=== PATIENT | female | born 1960 ===

== ENCOUNTER 2017-04-24 17:22 | Emergency (ER) | payer MEDICAID ==
[2017-04-24 17:28] VITALS: BP 138/77; RESP 18; TEMP 98.5; O2SAT 100
[2017-04-24] MEDS ORDERED: DiphenhydrAMINE 50 mg/ml Inj IVP STA (19:21)
--- NOTE | 2017-04-24 20:11 | ED PDOC ---
Syncope/Near Syncope/Dizzyness Time Seen by Provider: 04/24/17 18:57 Chief Complaint (Nursing): Dizziness/Lightheaded Chief Complaint (Provider): Dizziness History Per: Patient History/Exam Limitations: no limitations Onset/Duration Of Symptoms: Days (3 days) Current Symptoms Are (Timing): Still Present Current Symptoms: headache, chest pain, nausea, and intermittent, non-bilious/ bloody vomiting Associated Symptoms Preceding Syncopal Episode: Vertigo Worse With Change In Head Position Possible Causative Factor(s): Vertigo, Lightheaded W/Change In Head Position Fall Associated With With Symptoms: No Severity: Moderate Additional Complaint(s): Kerry Morris is a 56 year old female, with a past medical history of hypertension and previously known migraines, who presents to the emergency department for the evaluation of vertiginous dizziness, that the patient began experiencing 3 days ago. Patient states that her dizziness is exacerbated with sitting upright and ambulation. Associated headache, chest pain, nausea, and intermittent episodes of non-bilious, non-bloody vomiting are currently present. Denies focal weakness, abdominal pain, or a loss of appetite. PMD: none specified Past Medical History Reviewed: Historical Data, Nursing Documentation, Vital Signs Vital Signs: Last Vital Signs Temp 98.5 F 04/24/17 17:26 Pulse 70 04/24/17 17:26 Resp 18 04/24/17 17:26 BP 138/77 04/24/17 17:26 Pulse Ox 100 04/24/17 17:26 - Medical History PMH: HTN, Hypercholesterolemia, Migraine - Surgical History Surgical History: Appendectomy Other surgeries: Tubal Ligation - Family History Family History: States: Hypertension - Social History Current smoker - smoking cessation education provided: No Ex-Smoker (has not smoked in the last 12 months): No Alcohol: None Drugs: Denies - Home Medications Home Medications: Ambulatory Orders Medication Instructions Recorded Meclizine [Antivert] 50 mg PO BID PRN #30 tab 04/24/17 Ondansetron ODT [Zofran ODT] 1 odt PO Q6 PRN #20 odt 04/24/17 - Allergies Allergies/Adverse Reactions: Allergies Allergy/AdvReac Type Severity Reaction Status Date / Time No Known Allergies Allergy Verified 04/24/17 17:25 Review of Systems ROS Statement: Except As Marked, All Systems Reviewed And Found Negative Cardiovascular: Positive for: Chest Pain Gastrointestinal: Positive for: Nausea, Vomiting (intermittent episodes, non- bilious). Negative for: Abdominal Pain, Hematemesis, Other (loss of appetite) Neurological: Positive for: Headache, Dizziness (vertiginous). Negative for: Weakness (focal) Physical Exam - Reviewed Nursing Documentation Reviewed: Yes Vital Signs Reviewed: Yes - Physical Exam Appears: Positive for: Well, Non-toxic, No Acute Distress Head Exam: Positive for: ATRAUMATIC, NORMOCEPHALIC Skin: Positive for: Normal Color, Warm, DRY Eye Exam: Positive for: EOMI, Normal appearance, PERRL ENT: Positive for: Normal ENT Inspection. Negative for: Pharyngeal Erythema, Tonsillar Exudate Neck: Positive for: Normal, Painless ROM, Supple Cardiovascular/Chest: Positive for: Regular Rate, Rhythm. Negative for: Murmur Respiratory: Positive for: Normal Breath Sounds. Negative for: Wheezing, Respiratory Distress Gastrointestinal/Abdominal: Positive for: Normal Exam, Soft. Negative for: Tenderness Back: Positive for: Normal Inspection. Negative for: Decreased ROM Extremity: Positive for: Normal ROM. Negative for: Deformity Lymphatic: Negative for: Adenopathy Neurologic/Psych: Positive for: Alert, Oriented. Negative for: Motor/Sensory Deficits - Laboratory Results Result Diagrams: 04/24/17 20:14 04/24/17 20:14 - ECG ECG Rhythm: Positive for: Normal QRS, Normal ST Segment, Sinus Rhythm Rate: 62 O2 Sat by Pulse Oximetry: 100 (RA) Pulse Ox Interpretation: Normal Medical Decision Making Medical Decision Makin:56 Initial Impression: Dizziness Differential Diagnoses include, but are not limited to, vertigo, atypical migraine, dehydration, electrolyte abnormality, and anemia. Initial Plan: * CT Head w/o Contrast * Electrocardiogram * Complete Blood Count * Comprehensive Metabolic Panel * Prothrombin Time * Partial Thromboplastin Time * Troponin I * Urine Dip * Magnesium * Phosphorous * Zofran 8 mg IV * Benadryl 25 mg IVP * Phenergan 25 mg IV * Glucose, Blood, POC * Reevaluation 19:27 EKG reviewed, Normal QRS, Normal ST Segment, Normal Sinus Rhythm at a rate of 62. Accession No. : [id number] Patient Name / ID : NADIA PAYNE / [id number] Exam Date : 04/24/2017 20:21:02 ( Approved ) Study Comment : Sex / Age : F / 56Y Creator : Aure Woods MD Dictator : Assembler Fluorescent Lights : Manufacturing Production Manager : Aure Woods MD Approver2 : Report Date : 04/24/2017 20:52:00 My Comment : [facility] Division of Radiology [address] [place] [address] Tel. no. Patient Name: KERRY MORRIS Pt. Address: [address] [place] [address] Rec #: [id number] [place] [address]: Tal MALLOY, Karissa Herron Pt CELL Order Location: [facility] : 1960 Female Age: 56 Order #: [id number] Reason for exam: dizzy vertiginous CT Scan HEAD W/O CONTRAST Exam Date: 04/24/17 This imaging exam was performed at [facility] EXAM: CT Head Without Intravenous Contrast CLINICAL HISTORY: 56 years old, female; Pain; Headache; Additional info: Dizzy vertiginous TECHNIQUE: Axial computed tomography images of the head/brain without intravenous contrast. This CT exam was performed using one or more of the following dose reduction techniques: automated exposure control, adjustment of the mA and/or kV according to patient size, and/or use of iterative reconstruction technique. COMPARISON: No relevant prior studies available. FINDINGS: Brain: No hemorrhage. No significant white matter disease. No edema. Ventricles: No hydrocephalus. Bones: Skull is intact. Sinuses: No acute sinusitis. Mastoid air cells: No mastoid effusion. IMPRESSION: No CT evidence of acute intracranial abnormality. Dictated By: Aure Woods MD Dictated Date/Time: 04/24/172051 Signed By: Aure Woods Date Signed: 2051 Transcribed By: ALEC Transcribe Date/Time : 04/24/172051 SONNAD/VRD 2200 On reeval, pt no longer vomiting but continues to have dizziness 23:00 Pt feels better. DW pt findings and plan of care. Meclizine, Zofran, Macrobid prescribed. Scribe Attestation: Documented by Blayne Clark, acting as a scribe for Karissa Parada MD. Provider Scribe Attestation: All medical record entries made by the Scribe were at my direction and personally dictated by me. I have reviewed the chart and agree that the record accurately reflects my personal performance of the history, physical exam, medical decision making, and the department course for this patient. I have also personally directed, reviewed, and agree with the discharge instructions and disposition. Disposition - Clinical Impression Clinical Impression: Vertigo, UTI (urinary tract infection) - Disposition Referrals: [facility] [Outside] [facility] [Outside] - 04/27/17 Disposition: Routine/Home Disposition Time: 23:00 Condition: IMPROVED Prescriptions: Meclizine [Antivert] 50 mg PO BID PRN #30 tab PRN Reason: Dizziness Ondansetron ODT [Zofran ODT] 1 odt PO Q6 PRN #20 odt PRN Reason: Nausea/Vomiting Instructions: Urinary Tract Infection in Women (ED), Vertigo (ED) Forms: [facility] ED School/Work Excuse Print Language: ERITREAN Addendum Addendum: 04/26/17 17:07 On review of chart, it appears macrobid was not entered/prescribed as intended. Called pt back at given number and voice message left to callback ER for prescription, which can be called into pt's preferred pharmacy.
[2017-04-24 20:21] LABS: BASO % 0.3 % (0.0-2.0); EOS % 0.5 % (0.0-4.0); HEMATOCRIT 41.4 % (34.0-47.0); LYMPH # 1.3 K/uL (1.0-4.3); LYMPH % 13.8 % (20.0-40.0); MEAN CELL VOLUME 93.6 fl (81.0-99.0); MEAN CORPUSCULAR HEMOGLOBIN 30.9 pg (27.0-31.0); MONO # 0.3 K/uL (0.0-0.8); MONO % 3.2 % (0.0-10.0); NEUT # 7.7 K/uL (1.8-7.0); NEUT % 82.2 % (50.0-75.0); RED CELL DISTRIBUTION WIDTH 14.1 % (11.5-14.5); WHITE BLOOD COUNT 9.4 K/uL (4.8-10.8)
[2017-04-24 20:26] VITALS: PULSE 62
[2017-04-24 20:30] LABS: ALB/GLOB RATIO 1.1 (1.0-2.1); ALKALINE PHOSPHATASE 93 U/L (38-126); ALT/SGPT 44 U/L (9-52); AST/SGOT 37 U/L (14-36); BILIRUBIN,TOTAL 0.4 mg/dl (0.2-1.3); BLOOD UREA NITROGEN 18 mg/dl (7-17); CALCIUM 9.8 mg/dL (8.4-10.2); CARBON DIOXIDE 31 mmol/L (22-30); CHLORIDE 101 mmol/L (98-107); GFR AFRICAN-AMERICAN > 60; GLUCOSE,RANDOM 109 mg/dL (65-105); MAGNESIUM 2.1 MG/DL (1.6-2.3); PHOSPHOROUS 3.3 mg/dl (2.5-4.5); POTASSIUM 4.5 MMOL/L (3.6-5.0); SODIUM 141 mmol/l (132-148); TOTAL PROTEIN 8.4 G/DL (6.3-8.2)
[2017-04-24] MEDS ORDERED: DiphenhydrAMINE 50 mg/ml Inj ONE (20:34)
[2017-04-24 20:40] LABS: PARTIAL THROMBOPLASTIN TIME 29.9 Seconds (25.6-37.1)
--- NOTE | 2017-04-24 20:53 | CT ---
EXAM: CT Head Without Intravenous Contrast CLINICAL HISTORY: 56 years old, female; Pain; Headache; Additional info: Dizzy vertiginous TECHNIQUE: Axial computed tomography images of the head/brain without intravenous contrast. This CT exam was performed using one or more of the following dose reduction techniques: automated exposure control, adjustment of the mA and/or kV according to patient size, and/or use of iterative reconstruction technique. COMPARISON: No relevant prior studies available. FINDINGS: Brain: No hemorrhage. No significant white matter disease. No edema. Ventricles: No hydrocephalus. Bones: Skull is intact. Sinuses: No acute sinusitis. Mastoid air cells: No mastoid effusion. IMPRESSION: No CT evidence of acute intracranial abnormality.
[2017-04-24 23:20] LABS: RBC URINE 0 /hpf (0-3); URINE BACTERIA MOD (<OCC); URINE BILIRUBIN NEGATIVE (NEGATIVE); URINE BLOOD TRACE (NEGATIVE); URINE COLOR LT YELLOW (YELLOW); URINE GLUCOSE (UA) NEGATIVE (Normal); URINE KETONE NEGATIVE (NEGATIVE); URINE LEUKOCYTE ESTERASE SMALL Leu/uL (Negative); URINE PROTEIN NEGATIVE (NEGATIVE); URINE UROBILINOGEN 0.2 mg/dL (0.2-1.0); WBC URINE 3 /hpf (0-5)
--- NOTE | 2017-04-25 12:45 | CARD ---
APPROVED REPORT EKG Measurement Heart [id number] AL [id number] <Conclusion> Normal sinus rhythm with sinus arrhythmia Normal ECG
== END 2017-04-25 00:02 | disposition home or self-care (01) ==
LOC: H.ER 17:22
DX: R42 Dizziness and giddiness (principal); N39.0 Urinary tract infection, site not specified; R51 Headache; R11.0 Nausea; R07.89 Other chest pain; E78.00 Pure hypercholesterolemia, unspecified; I10 Essential (primary) hypertension; Z87.891 Personal history of nicotine dependence